=== PATIENT | male | born 1960 | race Caucasian/White ===

== ENCOUNTER 2024-06-08 06:34 | Day surgery (SDC) | payer MEDICARE, SELFPAY ==
[2024-05-10 14:42] VITALS: BMI 23.8
[2024-05-23 14:39] VITALS: BMI 25.0
--- NOTE | 2024-06-08 07:03 | WPDANESEPPF ---
Anes - Initial Pre Proc Eval Procedure: Operation Date: 06/08/24 08:30 Proposed Procedures p Screening Colonoscopy - Guy Contreras MD Date/Time: 06/08/24 07:03 Surgeon: Guy Contreras MD Pre Op Diagnosis: Neoplasm Screening Patient Data Age: 64 Gender: M Height: 1.65 m Weight: 68.3 kg Allergies Allergy/AdvReac Type Severity Reaction Status Date / Time No Known Allergies Allergy Verified 06/08/24 07:23 Home Medications Medication Instructions Recorded Confirmed Type Bacillus coagulans 250 million 1 tablet PO ONCE 05/03/24 06/08/24 History cell chewable tablet (Digestive Advantage Probiotic Gummy) cholecalciferol (vitamin D3) 10 10 mcg PO DAILY 05/03/24 06/08/24 History mcg (400 unit) capsule glucosamine HCl 500 mg tablet 500 mg PO DAILY 05/03/24 06/08/24 History losartan 25 mg tablet 25 mg PO DAILY #90 tabs 05/03/24 06/08/24 Rx mecobalamin (vitamin B12) 500 mcg 500 mcg PO DAILY 05/03/24 06/08/24 History chewable tablet multivitamin 1 tablet PO DAILY 05/03/24 06/08/24 History Patient hx anesthesia problems: none Family hx anesthesia problems: none Results Review: All pre-operative results and documents have been reviewed as part of the pre-operative evaluation. [facility] Past Medical History Medical History (Updated 06/08/24 @ 08:36 by Guy Contreras MD) Arthritis Asthma HTN (hypertension) Surgical History Surgical History ) History of carpal tunnel surgery (1998) Lipoma of back Family History Family History ) Mother Hypertension Father Heart disease Sibling Cancer Social History Social History (Updated 06/06/24 @ 14:06 by [place] Hernandez) Social History: 06/02/24 very confident with medical forms Smoking status: Never smoker Smoking end date: 08/30/82 Alcohol intake: current Drinks per week: 12 Alcohol use details: 8-14 weekly Substance use: never Substance use type: does not use Do You Feel Safe in your Home?: Yes Lack of Transportation: No Lack of Food: Never True Current Housing: I Have Housing Concerned About Future Housing: No Difficulty Paying Gas/Electric Bills: No Difficulty Paying for Meds: No Currently Unemployed: No Education: High School Diploma/GED Difficulty w/ Childcare or Family Care: No Living arrangements: with family Occupation/Education: retired Gender identity (if verbalized by the patient): Male Spiritual care concerns: No Agree to blood products: Yes Anes - Eval Final PreProcedure Day of Procedure 06/08/24 07:03 Patient weight: normal Heart: regular rate and rhythm Lungs: clear to auscultation and normal air movement Airway: Mallampati scale class II Neurological: alert and oriented Last oral intake: >/= 8 hours ASA classification: III Emergent: no Anesthetic plan: proceed Anesthesia type and monitoring: general GIVS and standard monitoring Results Review: All pre-operative results and documents have been reviewed as part of the pre-operative evaluation. Informed Consent: The patient's anesthetic plan and its attendant risks and benefits were discussed with the patient/family/POA. Questions were solicited and answers provided to the satisfaction of the patient/family/POA.
[2024-06-08 07:39] VITALS: BMI 23.6
[2024-06-08 07:42] VITALS: BP 138/98; PULSE 70; RESP 16; TEMP 36.2; O2SAT 100
[2024-06-08] MEDS: LACTATED RINGERS 1,000 ML 150 ML IV CONT (07:54)
--- NOTE | 2024-06-08 08:34 | PM.HPGS ---
History of Present Illness History of Present Illness Consent: Risks, benefits, and alternatives have been discussed and questions answered. Patient agrees to proceed with procedure. Chief complaint: Neoplasm Screening Narrative: Enzo Johnson is a 64 year old male presents for screening colonoscopy. Patient's current weight appetite and bowel movements are normal. He denies abdominal pain. Patient has had no bleeding. Family history is noncontributory. Review of Systems Review of Systems: All systems reviewed & are unremarkable except as noted in HPI and below PMFSH Past Medical History Medical History (Updated 06/08/24 @ 08:36 by Guy Contreras MD) Arthritis Asthma HTN (hypertension) Surgical History Surgical History ) History of carpal tunnel surgery (1998) Lipoma of back Family History Family History ) Mother Hypertension Father Heart disease Sibling Cancer Social History Social History (Updated 06/06/24 @ 14:06 by Berlin Hernandez) Social History: 06/02/24 very confident with medical forms Smoking status: Never smoker Smoking end date: 08/30/82 Alcohol intake: current Drinks per week: 12 Alcohol use details: 8-14 weekly Substance use: never Substance use type: does not use Do You Feel Safe in your Home?: Yes Lack of Transportation: No Lack of Food: Never True Current Housing: I Have Housing Concerned About Future Housing: No Difficulty Paying Gas/Electric Bills: No Difficulty Paying for Meds: No Currently Unemployed: No Education: High School Diploma/GED Difficulty w/ Childcare or Family Care: No Living arrangements: with family Occupation/Education: retired Gender identity (if verbalized by the patient): Male Spiritual care concerns: No Agree to blood products: Yes Meds Home Medications and Allergies Home Medications Medication Instructions Recorded Confirmed Type Bacillus coagulans 250 million 1 tablet PO ONCE 05/03/24 06/08/24 History cell chewable tablet (Digestive Advantage Probiotic Gummy) cholecalciferol (vitamin D3) 10 10 mcg PO DAILY 05/03/24 06/08/24 History mcg (400 unit) capsule glucosamine HCl 500 mg tablet 500 mg PO DAILY 05/03/24 06/08/24 History losartan 25 mg tablet 25 mg PO DAILY #90 tabs 05/03/24 06/08/24 Rx mecobalamin (vitamin B12) 500 mcg 500 mcg PO DAILY 05/03/24 06/08/24 History chewable tablet multivitamin 1 tablet PO DAILY 05/03/24 06/08/24 History Allergies Allergy/AdvReac Type Severity Reaction Status Date / Time No Known Allergies Allergy Verified 06/08/24 07:23 Vital Signs Vital Signs - 24 hr 06/08/24 07:42 Temperature 97.2 F L Pulse Rate 70 Respiratory Rate 16 Blood Pressure 138/98 H Pulse Oximetry 100 Oxygen Delivery Room Air Exam Narrative: Physical exam reveals patient to be alert. Signs stable. HEENT exam is unremarkable. Patient is anicteric. Lungs are clear to auscultation and to percussion heart is without murmur or extra sounds. Abdomen bowel sounds are present soft nontender with no organomegaly. Digital external rectal exam is normal. Assessment and Plan Assessment and plan (1) Screen for colon cancer: Code(s): Z12.11 - Encounter for screening for malignant neoplasm of colon Status: Acute Assessment and Plan: Presents today for neoplasia screening colonoscopy. He appears to be at average risk for colon polyps. Further recommendations may be given after endoscopy.
[2024-06-08 09:03] VITALS: BP 107/76; PULSE 67; RESP 16; O2SAT 97
[2024-06-08 09:13] VITALS: BP 95/73; PULSE 69; RESP 20; O2SAT 98
[2024-06-08 09:23] VITALS: BP 135/81; PULSE 65; RESP 20; O2SAT 100
--- NOTE | 2024-06-08 12:08 | WPDANESPN ---
Anes - Prog Note Post-Op Date/Time: 06/08/24 12:08 Cardiovascular status: normal Respiratory status: normal Airway patency: baseline Mental status: baseline Post-Op hydration status: normal Vital Signs: Last Vital Signs Temp 36.2 C L 06/08/24 07:42 Pulse 65 06/08/24 09:23 Resp 20 06/08/24 09:23 BP 135/81 06/08/24 09:23 Pulse Ox 100 06/08/24 09:23 O2 Del Method Room Air 06/08/24 09:23 Pain Score (VAS): 0 I/O: Intake & Output 06/07/24 06/08/24 06/08/24 23:59 07:59 15:59 Intake Total 600 Balance 600 Post-procedural complaints: none Patient Feedback: Patient satisfied with anesthetic care. Other Findings: Patient vital signs back to baseline. Patient denies nausea and vomiting. Patient's pain under control. Patient OK for discharge.
== END 2024-06-08 09:33 | disposition home or self-care (01) ==
PROVIDERS: PCP Nurse Practitioner Family; Visit Provider Internal Medicine Gastroenterology
PROC: 0DJD8ZZ Inspection of Lower Intestinal Tract, Via Natural or Artificial Opening Endoscopic (ICD-10-PCS; CPT 45378; principal; 2024-06-08 08:30)
DX: Z12.11 Encounter for screening for malignant neoplasm of colon (principal)
CPT/HCPCS: 45378